=== PATIENT | female | born 1985 | race African-American/Black ===

== ENCOUNTER 2018-09-24 08:40 | Emergency (ER) | payer MEDICAID ==
[~2018-09-24] VITALS: Ht 162.6 cm; Wt 54.5 kg
[2018-09-24 08:52] VITALS: Ht 162.6 cm; Wt 54.5 kg
[2018-09-24] MEDS ORDERED: CELEXA20 MG PO (08:54)
[2018-09-24] MEDS ORDERED: TRAZODONE HCL150 MG (08:54)
[2018-09-24] MEDS ORDERED: POLYTRIM EYE DR10 ML EACH EYE (09:08)
[2018-09-24] MEDS ORDERED: NORCO 5/325 TAB1 TAB PO (09:13)
[2018-09-24 09:29] VITALS: BP 113/69
== END 2018-09-24 09:30 | disposition home or self-care (01) ==
LOC: D.ER 08:40
DX: S05.02XA Injury of conjunctiva and corneal abrasion without foreign body, left eye, initial encounter (principal); W50.4XXA Accidental scratch by another person, initial encounter; Y93.89 Activity, other specified; Y92.019 Unspecified place in single-family (private) house as the place of occurrence of the external cause